=== PATIENT | female | born 1960 | race Caucasian/White ===

== ENCOUNTER → 2016-11-13 | Outpatient (CLI) | payer OTHER ==
[~2016-11-13] MED LIST: HYDR12.5C PO; LEVOTHYROXIN0.025 MG PO; SIMVASTATIN40 MG PO; VICO10300 PO; ZOFRAN ODT4 MG SL
[2016-11-13 09:14] LABS: HEMOGLOBIN A1c 6.4 % (4.8-5.6)
[2016-11-13 09:38] LABS: TRIGLYCERIDES 129 mg/dl (<150); VLDL CHOLESTEROL 26 mg/dL (6-40)
[2016-11-13 09:42] LABS: CHOLESTEROL 158 mg/dL (<200); HDL CHOLESTEROL 56 mg/dl (40-60); LDL CHOLESTEROL 76 mg/dL (9-159)
[2016-11-14 08:11] LABS: HEPATITIS C VIRUS ANTIBODY <0.1 s/co (0.0-0.9)
== END | disposition home or self-care (01) ==
LOC: LAB 08:35
PROVIDERS: Pediatrics
DX: E80.7 Disorder of bilirubin metabolism, unspecified (principal)

== ENCOUNTER → 2016-11-14 | Outpatient (CLI) | payer OTHER ==
[2016-11-14 10:18] LABS: CHLORIDE 105 mmol/L (98-107); CPK 124 U/L (26-192); EST GLOM FILT AFRICAN AMERICAN > 60 ml/min; POTASSIUM 3.9 mmol/L (3.5-5.1); SODIUM 142 mmol/L (136-145)
[2016-11-17 19:05] LABS: CREATININE, RANDOM URINE 269.7 mg/dL (Not Estab.)
== END | disposition home or self-care (01) ==
LOC: LAB 09:05
PROVIDERS: Pediatrics
DX: E80.7 Disorder of bilirubin metabolism, unspecified (principal)

== ENCOUNTER → 2017-01-29 | Outpatient (CLI) | payer OTHER ==
[~2017-01-29] MED LIST changes: +ALEVE220 MG PO; +CLARITIN10 MG PO; +METFORMIN HCL500 MG PO; +MULTI VITAMINS1 TAB PO; +TRANDOLAPRIL2 MG PO
== END | disposition home or self-care (01) ==
LOC: RAD 16:29
DX: M47.896 Other spondylosis, lumbar region (principal); M48.06 Spinal stenosis, lumbar region; R94.5 Abnormal results of liver function studies

== ENCOUNTER 2017-02-05 10:11 | Emergency (ER) | payer OTHER ==
[~2017-02-05] VITALS: Ht 160 cm; Wt 123.8 kg
[~2017-02-05 10:11] MED LIST changes: -ALEVE220 MG PO; -CLARITIN10 MG PO; -METFORMIN HCL500 MG PO; -MULTI VITAMINS1 TAB PO; -TRANDOLAPRIL2 MG PO
[2017-02-05] MEDS ORDERED: METFORMIN HCL500 MG PO (10:21)
[2017-02-05] MEDS ORDERED: TRANDOLAPRIL2 MG PO (10:21)
[2017-02-05] MEDS ORDERED: MULTI VITAMINS1 TAB PO (10:22)
[2017-02-05] MEDS ORDERED: CLARITIN10 MG PO (10:23)
[2017-02-05] MEDS ORDERED: ALEVE220 MG PO (10:23)
== END 2017-02-05 12:01 | disposition home or self-care (01) ==
LOC: ED 10:11
DX: S83.92XA Sprain of unspecified site of left knee, initial encounter (principal); Z79.899 Other long term (current) drug therapy; W10.8XXA Fall (on) (from) other stairs and steps, initial encounter; Y93.01 Activity, walking, marching and hiking; Y92.830 Public park as the place of occurrence of the external cause; Y99.9 Unspecified external cause status

== ENCOUNTER → 2017-03-01 | Outpatient (CLI) | payer OTHER ==
[~2017-03-01] MED LIST changes: +ALEVE220 MG PO; +CLARITIN10 MG PO; +METFORMIN HCL500 MG PO; +MULTI VITAMINS1 TAB PO; +TRANDOLAPRIL2 MG PO
[2017-03-01 08:48] LABS: ALBUMIN 3.8 gm/dl (3.1-4.5); BILIRUBIN, DIRECT 0.2 mg/dL (0.0-0.2)
[2017-03-01 08:51] LABS: BILIRUBIN, TOTAL 1.3 mg/dl (0.2-1.0); TOTAL PROTEIN 7.3 gm/dL (6.4-8.2)
== END | disposition home or self-care (01) ==
LOC: LAB 07:46
PROVIDERS: Internal Medicine Gastroenterology
DX: R94.5 Abnormal results of liver function studies (principal); M54.5 Low back pain

== ENCOUNTER → 2017-03-25 | Day surgery (SDC) | payer OTHER ==
[~2017-03-25] VITALS: Ht 157.4 cm; Wt 83.9 kg
--- NOTE | ~2017-03-25 | O ---
[place], [place] OPERATIVE NOTE NAME: JUAN ERICKSON UNIT #: [id number] ROOM: DOCTOR: MARISELA DUARTE MD BIRTHDATE: [birth year] DOS: 03/25/2017 HISTORY OF PRESENT ILLNESS: A 56-year-old patient who has presented with chief complaint of constipation, change in bowel habits, undergoing investigation. FAMILY HISTORY: Mother with colonic carcinoma. ALLERGIES: LACTOSE intolerance. PAST MEDICAL HISTORY: Associated diabetes, hypertension, hypercholesterolemia, hypothyroidism, obesity, and sarcoidosis history. PAST SURGICAL HISTORY: Tubal ligation, C-sections. SOCIAL HISTORY: Nonsmoker, nonalcohol consumer. PROCEDURE: Todays' procedure part of investigation is colonoscopy plus piecemeal polypectomy. PREMEDICATION: Versed and Diprivan. SCOPE: Olympus forward-viewing colonoscope 10L video. REPORT: After putting the patient in the left lateral position and after application of lubricant to rectal pouch and digital examination, scope was introduced. Thereafter, under direct visualization, advanced to the base of cecum. Sessile polypoid lesion at the base of cecum was identified which was with piecemeal polypectomy removed. Another sessile polypoid lesion at hepatic flexure with piecemeal polypectomy was removed. Ileocecal valve was defined. Appendiceal orifice identified and transillumination of light in the right lower quadrant demonstrated scope was gradually withdrawn from ascending, transverse, descending colon. The patient extubated, tolerated procedure well. IMPRESSION: 1. Sessile polypoid lesion of cecum, status post piecemeal polypectomy. 2. Sessile polypoid lesion at hepatic flexure, status post piecemeal polypectomy. PLAN AND DISCUSSION: Modification of diet with high fiber and fruit diet avoiding excessive fatty food and follow up as outpatient. Telling me that she has abnormal LFTs and she is complaining of lumbosacral pain, an x-ray of lower spine is organized. Lumbosacral x-rays as well as LFTs are being followed as an outpatient. [place], [place] OPERATIVE NOTE NAME: JUAN ERICKSON UNIT #: [id number] ROOM: DOCTOR: MARISELA DUARTE MD BIRTHDATE: [birth year] MARISELA DUARTE MD CM:LEEANNAORD:OPERATIVE NOTE 0 BERTRAM DUARTE MD 03/25/17 [id number] interface
[2017-03-25 08:00] VITALS: BP 135/71
[2017-03-25 08:59] VITALS: BP 128/71
[2017-03-25 09:14] VITALS: BP 137/78
[2017-03-25 09:29] VITALS: BP 137/78
== END | disposition home or self-care (01) ==
LOC: SDC 03-19 11:00
DX: D12.0 Benign neoplasm of cecum (principal); D12.3 Benign neoplasm of transverse colon; E11.9 Type 2 diabetes mellitus without complications; I10 Essential (primary) hypertension; E78.00 Pure hypercholesterolemia, unspecified; E03.9 Hypothyroidism, unspecified; E66.9 Obesity, unspecified; Z98.890 Other specified postprocedural states; Z98.51 Tubal ligation status; Z80.0 Family history of malignant neoplasm of digestive organs; Z88.8 Allergy status to other drugs, medicaments and biological substances

== ENCOUNTER → 2017-05-11 | Outpatient (CLI) | payer OTHER | END | disposition home or self-care (01) | LOC: US 07:19 | DX: K76.0 Fatty (change of) liver, not elsewhere classified (principal); R79.89 Other specified abnormal findings of blood chemistry; I10 Essential (primary) hypertension; E11.9 Type 2 diabetes mellitus without complications; E78.5 Hyperlipidemia, unspecified ==

== ENCOUNTER → 2018-01-12 | Outpatient (CLI) | payer OTHER | END | disposition home or self-care (01) | LOC: MAMMO 16:27 | DX: Z12.31 Encounter for screening mammogram for malignant neoplasm of breast (principal) ==

== ENCOUNTER → 2019-01-18 | Outpatient (CLI) | payer OTHER | END | disposition home or self-care (01) | LOC: MAMMO 00:55 | DX: Z12.31 Encounter for screening mammogram for malignant neoplasm of breast (principal) ==

== ENCOUNTER → 2019-06-08 | Outpatient (CLI) | payer OTHER | END | disposition home or self-care (01) | LOC: RAD 14:35 | DX: M25.561 Pain in right knee (principal) ==

== ENCOUNTER → 2019-08-21 | Outpatient (CLI) | payer OTHER ==
[2019-08-21 10:22] LABS: CHOLESTEROL 161 mg/dL (<200); HDL CHOLESTEROL 59 mg/dl (40-60); LDL CHOLESTEROL 80 mg/dL (9-159); TRIGLYCERIDES 111 mg/dl (<150); VLDL CHOLESTEROL 22 mg/dL (6-40)
== END | disposition home or self-care (01) ==
LOC: LAB 09:45
PROVIDERS: Registered Nurse Flight
DX: E78.00 Pure hypercholesterolemia, unspecified (principal)

== ENCOUNTER → 2020-01-18 | Outpatient (CLI) | payer OTHER | END | disposition home or self-care (01) | LOC: CARD 10:23 | DX: R05 Cough (principal) ==

== ENCOUNTER → 2020-07-12 | Outpatient (CLI) | payer OTHER ==
[2020-07-12 09:28] LABS: BASO % 0.5 % (0.0-1.0); EOS # 0.2 10*3/uL (0.0-0.4); EOS % 2.2 % (1.0-4.0); HEMATOCRIT 44.8 % (37.0-47.0); LYMPH # 2.6 10*3/uL (1.3-4.4); LYMPH % 31.6 % (27.0-41.0); MEAN CORPUSCULAR HGB 27.7 pg (27.0-31.0); MEAN CORPUSCULAR HGB CONC 32.6 g/dl (33.0-37.0); MEAN PLATELET VOLUME 10.8 fl (9.6-12.3); MONO # 0.5 10*3/uL (0.1-1.0); MONO % 5.9 % (3.0-9.0); NEUT % 59.6 % (47.0-73.0); PLATELET COUNT AUTOMATED 234 10*3/uL (130-400); RED BLOOD COUNT 5.27 10*6/uL (4.10-5.10); RED CELL DISTRI WIDTH 13.3 % (0-14.5); WHITE BLOOD COUNT 8.3 10*3/uL (4.8-10.8)
[2020-07-12 09:44] LABS: ALBUMIN 3.6 gm/dl (3.1-4.5); ALKALINE PHOSPHATASE 67 U/L (45-117); BUN 21 mg/dl (7-24); CHLORIDE 106 mmol/L (98-107); CHOLESTEROL 212 mg/dL (<200); CREATININE 0.93 mg/dL (0.55-1.02); HDL CHOLESTEROL 62 mg/dl (40-60); LDL CHOLESTEROL 126 mg/dL (9-159); POTASSIUM 4.3 mmol/L (3.5-5.1); SGOT/AST 18 IU/L (3-35); SGPT/ALT 21 U/L (12-78); SODIUM 140 mmol/L (136-145); TOTAL PROTEIN 6.8 gm/dL (6.4-8.2); TRIGLYCERIDES 121 mg/dl (<150); VLDL CHOLESTEROL 24 mg/dL (6-40)
== END | disposition home or self-care (01) ==
LOC: LAB 08:39
PROVIDERS: ATTEND Nurse Practitioner
DX: E11.9 Type 2 diabetes mellitus without complications (principal)

== ENCOUNTER → 2020-09-17 | Outpatient (CLI) | payer OTHER ==
[2020-09-17 19:37] LABS: BUN 23 mg/dl (7-24); CHLORIDE 106 mmol/L (98-107); CREATININE 1.04 mg/dL (0.55-1.02); POTASSIUM 3.8 mmol/L (3.5-5.1); SODIUM 139 mmol/L (136-145)
== END | disposition home or self-care (01) ==
LOC: LAB 17:31
PROVIDERS: ATTEND Family Medicine
DX: I10 Essential (primary) hypertension (principal)

== ENCOUNTER → 2020-10-08 | Outpatient (CLI) | payer OTHER | END | disposition home or self-care (01) | LOC: MAMMO 00:24 | PROVIDERS: ATTEND Family Medicine | DX: Z12.31 Encounter for screening mammogram for malignant neoplasm of breast (principal) ==

== ENCOUNTER → 2020-11-01 | Outpatient (CLI) | payer OTHER | END | disposition home or self-care (01) | LOC: US 10:22 | PROVIDERS: ATTEND Family Medicine | DX: N18.31 Chronic kidney disease, stage 3a (principal) ==

== ENCOUNTER → 2021-10-13 | Outpatient (CLI) | payer OTHER ==
[2021-10-13 10:23] LABS: BASO # 0.1 10*3/uL (0.0-0.1); BASO % 0.7 % (0.0-1.0); EOS # 0.2 10*3/uL (0.0-0.4); EOS % 2.1 % (1.0-4.0); HEMATOCRIT 45.3 % (37.0-47.0); LYMPH # 2.3 10*3/uL (1.3-4.4); MEAN CELL VOLUME 85.8 fl (81.0-99.0); MEAN CORPUSCULAR HGB 28.6 pg (27.0-31.0); MEAN CORPUSCULAR HGB CONC 33.3 g/dl (33.0-37.0); MEAN PLATELET VOLUME 10.6 fl (9.6-12.3); MONO # 0.4 10*3/uL (0.1-1.0); MONO % 5.9 % (3.0-9.0); NEUT # 4.4 10*3/uL (2.3-7.9); NEUT % 60.2 % (47.0-73.0); PLATELET COUNT AUTOMATED 205 10*3/uL (130-400); RED BLOOD COUNT 5.28 10*6/uL (4.10-5.10); RED CELL DISTRI WIDTH 13.6 % (0-14.5); WHITE BLOOD COUNT 7.3 10*3/uL (4.8-10.8)
[2021-10-13 10:44] LABS: CHLORIDE 110 mmol/L (98-107); POTASSIUM 4.7 mmol/L (3.5-5.1); SODIUM 141 mmol/L (136-145)
[2021-10-13 10:59] LABS: ALBUMIN 3.8 gm/dl (3.1-4.5); ALKALINE PHOSPHATASE 65 U/L (45-117); BUN 20 mg/dl (7-24); CHOLESTEROL 180 mg/dL (<200); CREATININE 0.85 mg/dL (0.55-1.02); LDL CHOLESTEROL 97 mg/dL (9-159); SGOT/AST 16 IU/L (3-35); SGPT/ALT 26 U/L (12-78); TRIGLYCERIDES 132 mg/dl (<150)
== END | disposition home or self-care (01) ==
LOC: LAB 09:36
PROVIDERS: ATTEND Family Medicine
DX: I10 Essential (primary) hypertension (principal); E03.9 Hypothyroidism, unspecified; Z86.39 Personal history of other endocrine, nutritional and metabolic disease

== ENCOUNTER → 2021-10-29 | Outpatient (CLI) | payer OTHER | END | disposition home or self-care (01) | LOC: MAMMO 10-15 15:00 | PROVIDERS: ATTEND Family Medicine | DX: Z12.31 Encounter for screening mammogram for malignant neoplasm of breast (principal) ==

== ENCOUNTER → 2022-02-14 | Outpatient (CLI) | payer OTHER | END | disposition home or self-care (01) | LOC: RAD 11:16 | PROVIDERS: ATTEND Family Medicine | DX: M47.818 Spondylosis without myelopathy or radiculopathy, sacral and sacrococcygeal region (principal) ==

== ENCOUNTER → 2023-04-28 | Outpatient (CLI) | payer OTHER | END | disposition home or self-care (01) | LOC: MAMMO 00:15 | PROVIDERS: ATTEND Nurse Practitioner Women's Health | DX: Z12.31 Encounter for screening mammogram for malignant neoplasm of breast (principal) ==

== ENCOUNTER → 2024-01-07 | Outpatient (CLI) | payer OTHER | END | disposition home or self-care (01) | LOC: US 00:17 | PROVIDERS: ATTEND Nurse Practitioner | DX: K76.0 Fatty (change of) liver, not elsewhere classified (principal) ==

== ENCOUNTER → 2024-10-04 | Outpatient (CLI) | payer OTHER | END | disposition home or self-care (01) | LOC: MAMMO 09-06 16:30 | PROVIDERS: ATTEND Nurse Practitioner | DX: Z12.31 Encounter for screening mammogram for malignant neoplasm of breast (principal); R92.323 Mammographic fibroglandular density, bilateral breasts ==